=== PATIENT | male | born 1965 | race Asian ===

== ENCOUNTER 2016-06-03 23:29 | Emergency (ER) | payer SELFPAY ==
[~2016-06-03] VITALS: Ht 172.7 cm; Wt 52.0 kg
[~2016-06-03 23:29] MED LIST: METF500T4 PO
[2016-06-03 23:31] VITALS: BP 150/104
== END 2016-06-04 00:32 | disposition left against medical advice (07) ==
LOC: EMS 23:31
DX: H92.02 Otalgia, left ear (principal); Z53.21 Procedure and treatment not carried out due to patient leaving prior to being seen by health care provider

== ENCOUNTER 2018-03-07 17:11 | Emergency (ER) | payer SELFPAY ==
[~2018-03-07] VITALS: Ht 175.3 cm; Wt 72.7 kg
[~2018-03-07 17:11] MED LIST changes: +METF-960 PO; -METF500T4 PO
[2018-03-07] MEDS ORDERED: LISI-660 PO (17:14)
[2018-03-07] MEDS ORDERED: ATOR10TA84 PO (17:14)
[2018-03-07 17:15] VITALS: BP 137/96
[2018-03-07 17:37] LABS: BASOPHILS % (AUTO) 0.7 % (0.0-2.0); EOSINOPHILS % (AUTO) 3.4 % (1.0-6.0); HEMATOCRIT 43.9 % (41-53); HEMOGLOBIN 14.9 g/dL (13.5-17.5); LYMPHOCYTES % (AUTO) 26.9 % (22.0-44.0); MEAN CORPUSCULAR HEMOGLOBIN 31.3 pg (26.0-34.0); MEAN CORPUSCULAR HGB CONC 33.8 G/dL (31.0-37.0); MEAN CORPUSCULAR VOLUME 93 fL (80-100); MONOCYTES # (AUTO) 0.7 K/uL (0.1-1.0); MONOCYTES % (AUTO) 8.8 % (2.0-9.0); NEUTROPHILS # (AUTO) 4.5 K/uL (1.8-7.7); NEUTROPHILS % (AUTO) 60.2 % (40.0-70.0); PLATELET COUNT (AUTO) 232 K/uL (150-450); RED BLOOD CELL COUNT(AUTO) 4.75 MIL/uL (4.50-5.90); RED CELL DISTRIBUTION WIDTH 12.9 % (11.5-14.5)
[2018-03-07 17:50] LABS: ANION GAP 6 mmol/L (8-16); CALCIUM, TOTAL 9.6 mg/dL (8.8-10.5); CARBON DIOXIDE 32 mmol/L (22-29); CHLORIDE 104 mmol/L (98-107); CREATININE 1.13 mg/dL (0.60-1.30); GLOMERULAR FILTR. RATE CALC > 60 mL/min (>60); GLUCOSE,RANDOM 96 mg/dL (70-110); POTASSIUM 4.3 mmol/L (3.5-5.1); SODIUM SERUM 142 mmol/L (136-145); UREA NITROGEN, BLOOD 14 mg/dL (7-18)
[2018-03-07 17:56] LABS: ALANINE AMINOTRANSFERASE 23 U/L (12-78); ALBUMIN 3.8 g/dL (3.4-5.0); ALKALINE PHOSPHATASE 76 U/L (46-116); ASPARTATE AMINOTRANSFERASE 12 U/L (15-37); BILIRUBIN,TOTAL 0.3 mg/dL (0.1-1.0); TOTAL PROTEIN, SERUM 7.7 g/dL (6.4-8.2)
[2018-03-07 20:45] LABS: APPEARANCE,URINE CLEAR (CLEAR); BILIRUBIN,URINE NEGATIVE (NEGATIVE); GLUCOSE, URINE (UA) NEGATIVE (NEGATIVE); KETONES,URINE NEGATIVE (NEGATIVE); LEUKOCYTE ESTERASE ,URINE NEGATIVE (NEGATIVE); NITRATE,URINE NEGATIVE (NEGATIVE); OCCULT BLOOD,URINE NEGATIVE (NEGATIVE); PROTEIN,URINE NEGATIVE (NEGATIVE); UROBILINOGEN,URINE 0.2 mg/dL (<=1.0)
== END 2018-03-07 22:04 | disposition left against medical advice (07) ==
LOC: EMS 17:13
DX: Z53.21 Procedure and treatment not carried out due to patient leaving prior to being seen by health care provider (principal)
CPT/HCPCS: 93005

== ENCOUNTER 2021-08-13 21:30 | Emergency (ER) | payer OTHER ==
[~2021-08-13] VITALS: Ht 175.3 cm; Wt 79.5 kg
[~2021-08-13 21:30] MED LIST changes: +ATOR10TA84 PO; +LISI-892 PO; +METF-1211 PO; -METF-960 PO
[2021-08-13 21:54] VITALS: BP 122/93
[2021-08-13] MEDS ORDERED: SITA25 PO (22:00)
[2021-08-13 22:06] LABS: GLUCOSE,POINT OF CARE 309 MG/DL (70-110)
[2021-08-13] MEDS ORDERED: AMOX TR/POT CLAV 875 MG/125 MG TABLET PO ONE (23:00)
[2021-08-13] MEDS ORDERED: AMOX1TAB16 PO (23:00)
[2021-08-13] MEDS ORDERED: KETOROLAC TROMETHAMINE 10 MG TABLET PO ONE (23:00)
== END 2021-08-13 23:15 | disposition home or self-care (01) ==
LOC: EMS 21:58
DX: K04.7 Periapical abscess without sinus (principal); E11.65 Type 2 diabetes mellitus with hyperglycemia; I10 Essential (primary) hypertension; E11.9 Type 2 diabetes mellitus without complications; E78.00 Pure hypercholesterolemia, unspecified; F17.210 Nicotine dependence, cigarettes, uncomplicated; Z79.899 Other long term (current) drug therapy
CPT/HCPCS: 82962; 99283

== ENCOUNTER 2022-10-06 06:06 | Emergency (ER) | payer OTHER ==
[~2022-10-06] VITALS: Ht 175.3 cm; Wt 68.2 kg
[~2022-10-06 06:06] MED LIST changes: +AMOX1TAB16 PO; +ATOR10TA PO; -ATOR10TA84 PO; +SITA25 PO
[2022-10-06 06:17] VITALS: TEMP 98.7
[2022-10-06 07:17] VITALS: BP 139/88; PULSE 105; RESP 15
[2022-10-08 10:07] LABS: QUANTIFERON, TB GOLD PLUS Negative (Negative)
== END 2022-10-06 09:21 | disposition home or self-care (01) ==
LOC: EMS 06:06
DX: Z20.1 Contact with and (suspected) exposure to tuberculosis (principal); R63.4 Abnormal weight loss; E11.9 Type 2 diabetes mellitus without complications; E78.00 Pure hypercholesterolemia, unspecified; I10 Essential (primary) hypertension; F17.210 Nicotine dependence, cigarettes, uncomplicated
CPT/HCPCS: 71046; 86480; 99284; 36415-L1; 36415-TC